=== PATIENT | female | born 1980 | race Two or more races ===

== ENCOUNTER 2018-01-24 09:52 | Outpatient (CLI) | payer OTHER | END 2018-01-24 17:00 | disposition home or self-care (01) | LOC: RX STUDY 09:52 | DX: R10.2 Pelvic and perineal pain (principal) ==

== ENCOUNTER 2018-06-22 12:02 | Outpatient (CLI) | payer OTHER | END 2018-06-22 14:14 | disposition home or self-care (01) | LOC: RX STUDY 12:02 | DX: N93.8 Other specified abnormal uterine and vaginal bleeding (principal) ==

== ENCOUNTER 2020-06-20 09:36 | Outpatient (CLI) | payer OTHER | END 2020-06-20 09:50 | disposition home or self-care (01) | LOC: RX STUDY 09:36 | PROVIDERS: ATTEND Obstetrics & Gynecology Gynecology | DX: R10.2 Pelvic and perineal pain (principal) ==